=== PATIENT | male | born 1980 | race Caucasian/White ===

== ENCOUNTER 2020-01-24 11:16 | Emergency (ER) | payer BC, OTHER ==
[~2020-01-24] VITALS: Ht 185.4 cm; Wt 77.3 kg
[2020-01-24 11:17] VITALS: BP 135/85
[2020-01-24] MEDS ORDERED: LIDOcaine 1% 30ml preserv. free vial IJ ONE (11:35)
[2020-01-24] MEDS ORDERED: TETanus/Pertussis (Acell)/Diphther VAC/PF (Tdap-Adult) 0.5ml syringe IMVAC ONE (11:35)
[2020-01-24] MEDS ORDERED: HYDROcodone/acetaminophen 5mg/325mg tablet PO ONE (11:35)
[2020-01-24] MEDS ORDERED: bacitracin 15gm ointment TP ONE (11:35)
[2020-01-24] MEDS ORDERED: LIDOcaine 1% W/epiNEPHrine 1:200,000 10ml vial IJ ONE (11:35)
[2020-01-24] MEDS ORDERED: ondansetron 4mg rapidly disintigrating tab PO ONE (11:35)
[2020-01-24] MEDS ORDERED: ceFAZolin 1gm IM kit IM ONE (12:00)
[2020-01-24] MEDS ORDERED: HYDR-4383 PO (12:54)
[2020-01-24] MEDS ORDERED: ONDA4TAB6 PO (12:54)
[2020-01-24] MEDS ORDERED: CEPH250T PO (12:54)
== END 2020-01-24 13:23 | disposition home or self-care (01) ==
LOC: ER 11:17
DX: S62.633A Displaced fracture of distal phalanx of left middle finger, initial encounter for closed fracture (principal); S61.211A Laceration without foreign body of left index finger without damage to nail, initial encounter; Z79.2 Long term (current) use of antibiotics; Z79.899 Other long term (current) drug therapy; W45.8XXA Other foreign body or object entering through skin, initial encounter; Y93.89 Activity, other specified; Y92.89 Other specified places as the place of occurrence of the external cause; Y99.8 Other external cause status
CPT/HCPCS: 12041; 73140; 90471; 90715; 96372; 99284; J0690; 12001